=== PATIENT | male | born 1945 | race Caucasian/White ===

== ENCOUNTER 2016-09-28 11:44 | Emergency (ER) | payer MEDICARE, OTHER ==
[~2016-09-28 11:44] MED LIST: ACETAMINOPHEN500 M1 PO; ASCORBIC ACID500 MG PO; ASPIRIN CHEWABL81 MG PO; ASPIRIN325 MG PO; AUGMENTIN 500-1 EACH PO; BACLOFEN 10MG T10 MG PO; CENTRAL-VITE1 EACH PO; CLARITIN10 MG PO; DAKIN'S 1/4 ST480 ML TOP; EFFEXOR XR37.5 MG PO; FLOMAX0.4 MG PO; FLONASE ALLER15.8 ML; GLUCOTROL10 MG PO; HYDROCODONE-APA1 TAB PO; KEPPRA500 MG PO; LACTINEX1 EACH PO; LEVAQUIN500 MG PO; LOVAZA1 GM PO; METFORMIN HCL500 MG PO; MIRALAX17 GM PO; MYLICON80 MG PO; NEURONTIN400 MG PO; PRILOSEC20 MG PO; PROSCAR5 MG PO; ROBITUSSIN DM10 ML PO; SENOKOT8.6 MG PO; VITAMIN D1000 UNI1 PO; XOPENEX (11.25 MG/3 NEB; ZESTRIL5 MG PO
[2016-09-28 12:25] LABS: BASOPHIL 0.4 % (0-2); EOSINOPHIL 8.1 % (0-7); HCT 30.9 % (42.0-52.0); HGB 9.1 g/dl (13.2-18.0); LYMPHOCYTE 17.2 % (15-48); MCHC 29.4 g/dL (32.0-36.0); MCV 91.7 fL (78.0-100.0); MPV 9.6 fL (6.0-9.5); NEUTROPHIL 68.3 % (41-80); PLT 248 K/uL (150-400); RBC 3.37 M/uL (4.70-6.00); RDW 15.5 % (11.5-14.0); WBC 8.4 K/uL (4.0-10.5)
[2016-09-28 12:33] LABS: LACTIC ACID 1.5 mmol/L (0.5-2.2)
[2016-09-28 12:34] LABS: ALBUMIN 3.5 g/dL (3.4-4.8); BILIRUBIN - TOTAL 0.2 mg/dL (0.1-1.0); CREATININE 1.5 mg/dL (0.7-1.2); GLOBULIN (CALCULATION) 3.7 g/dL (2.2-4.2); POTASSIUM 5.3 mmol/L (3.5-5.1); TOTAL PROTEIN 7.2 g/dL (6.4-8.3)
[2016-09-28 12:46] LABS: TROPONIN T 0.184 ng/mL
[2016-09-28 16:24] LABS: BILIRUBIN NEGATIVE (NEGATIVE); BLOOD 3+ Ery/uL (NEGATIVE); CLARITY HAZY (CLEAR); COLOR YELLOW (YELLOW); GLUCOSE (U) NORMAL (NORMAL); KETONE (U) NEGATIVE (NEGATIVE); LEUKOCYTES 3+ Leu/uL (NEGATIVE); NITRITE NEGATIVE (NEGATIVE); PROTEIN 1+ mg/dL (NEGATIVE); UROBILINOGEN 0.2 mg/dL (0.2-1.0); pH 5.5 (5.0-9.0)
[2016-09-28 16:29] LABS: BACTERIA 2+; SQUAMOUS EPITHELIAL CELLS RARE; URINARY WBC 20-50; YEAST PRESENT
== END 2016-09-28 21:45 | disposition other institution (70) ==
LOC: FER 11:44
PROVIDERS: Emergency Medicine
DX: J96.00 Acute respiratory failure, unspecified whether with hypoxia or hypercapnia (principal); E87.2 Acidosis; J90 Pleural effusion, not elsewhere classified; R79.89 Other specified abnormal findings of blood chemistry; R82.90 Unspecified abnormal findings in urine; I11.9 Hypertensive heart disease without heart failure; I25.10 Atherosclerotic heart disease of native coronary artery without angina pectoris; L89.154 Pressure ulcer of sacral region, stage 4; E11.622 Type 2 diabetes mellitus with other skin ulcer; D64.9 Anemia, unspecified; G82.50 Quadriplegia, unspecified; E78.5 Hyperlipidemia, unspecified; Z86.718 Personal history of other venous thrombosis and embolism; Z93.3 Colostomy status; Z99.81 Dependence on supplemental oxygen
CPT/HCPCS: 36415; 36600; 71010; 71250; 78579; 78580; 80053; 81001; 82803; 83605; 83880; 84484; 85025; 87040; 87070; 87076; 87088; 87186; 87205; 87804; 87899; 93005; 93970; 94640; 94664; A9539; A9540